=== PATIENT | female | born 1940 | race Caucasian/White ===

== ENCOUNTER 2017-11-11 14:34 | Emergency (ER) | payer OTHER, MEDICARE ==
[2017-11-11 14:40] VITALS: BMI 22.8
[2017-11-11] MEDS ORDERED: NIFEDIPINE CAP 10 MG ONE (15:23)
--- NOTE | 2017-11-11 15:23 | DR.GENAD ---
HPI - PCP Primary Care Physician: EVAN VALENCIA - Complaint/Symptoms Chief Complaint Doctors Comments: HISTORY BELOW. HAPPEN TODAY AN HOUR BEFORE COMING. AT THE [facility] DO[facility] WORK. NO PREVIOUS EPISODES REPORTED. Chief Complaint:: PT C/O THAT SHE WAS FEELING FINE UNTIL SHE ATE HER LUNCH AND WHEN SHE WENT TO STAND UP SHE FELT DIZZY AND SHE FELT ALOT OF PRESSURE TO HER HEAD AND HER BP WAS 159/170.. PT DENIES ANY CP , AND SHE C/O HER HEAD AND HER VISION FEELING SWIMMY,,, - Nurses notes reviewed Nurses Notes Review: Yes - Source History Provided: Patient - Mode of Arrival Mode of Arrival: Wheelchair - Timing Onset of Chief Complaint: 11/11/17 Came on: Suddenly - Duration Duration: Constant Duration: Hours - Severity Severity: Moderate PMH - PMH Past Medical History: Yes Past Medical History: Arthritis, Diabetes Past Surgical History: Yes Surgical History: Appendectomy, Hysterectomy Past Surgical History Comment: DOUBLE HIP REPLACEMENT, - Family History History of Family Medical Conditions: No - Social History Does patient currently use any type of tobacco product: No Have you used tobacco products in the last 12 months: No Type of Tobacco Use: None Does any household member use tobacco: No Alcohol Use: None Do you use any recreational Drugs:: No Lives With: Family Lives Where: Home - infectious screening In the last 2 months have you had wt loss of >10#?: NO Have you had fever, night sweats or hemotysis?: No Have you traveled outside the country in the last 6 months?: No Isolation: Standard ROS - Review of Systems Constitutional: No Symptoms Reported Eyes: Blurred Vision (TRANSIENT.) ENTM: Nose Congestion. negative: Ear Pain, Ear Discharge, Hearing Loss, Nose Discharge, Throat Pain Respiratoy: No Symptoms Reported Cardiovascular: No Symptoms Reported Gastrointestinal/Abdominal: No Symptoms Reported Genitourinary: No Symptoms Reported Neurological: Dizziness, Other (VERTIGO) Musculoskeletal: No Symptoms Reported Integumentary: No Symptoms Reported Hematologic/Lymphatic: No Symptoms Reported Endocrine: No Symptoms Reported All Other Systems: Reviewed and Negative PE - Vital Signs Vitals: Temperature 97.7 F Pulse Rate [Left Brachial] 71 Pulse Rate 76 Respiratory Rate 18 Blood Pressure [Left Arm] 129/58 Blood Pressure 201/91 O2 Sat by Pulse Oximetry 94 - General Limitations: No Limitations General Appearance: Alert - Head Head Exam: Normal Inspection - Eyes Eye exam: Normal Appearance - ENT ENT Exam: Normal External Ear Exam External Ear Exam: Normal External Inspection TM/Canal Exam: Bilateral Normal Nose Exam: Normal Nose Exam Mouth Exam: Normal Inspection Throat Exam: Normal Inspection - Neck Neck Exam: Trachea Midline - Chest Chest Inspection: Symmetric Chest Wall Rise, Other (BP ELEVATED.) - Respiratory Respiratory Exam: Normal Lung Sounds Bilat Respiratory Exam: Bilateral Clear to Auscultation - Cardiovascular Cardiovascular Exam: Regular Rate, Normal Rhythm, Normal Heart Sounds - Abdominal Exam Abdominal Exam: Normal Bowel Sounds, Soft. negative: Tenderness - Extremities Extremities Exam: Normal Inspection - Back Back Exam: Normal Inspection - Neurologic Neurological Exam: Alert, Oriented X3 - Psychiatric Psychiatric Exam: Normal Affect, Normal Mood - Skin Skin Exam: Normal Color MDM - Differential Diagnosis Differential Diagnosis: DIZZINESS, HYPERTENSIN, VERTIGO Course - Treatment Treatment: SEE ORDERS. - Consultation Consultation Comments: DISCUSS PATIENT WITH DR. GORDON. HE WILL FOLLOW HER UP IN THE OFFICE. - Education/Counseling Education/Counseling: Patient, Education Educated On: Treatment, Diagnosis, Needs for Follow Up ROR - Labs Reviewed Laboratory Results Reviewed?: Yes Result Diagrams: 11/11/17 15:23 11/11/17 15:23 Laboratory: WBC 8.2 X10^3/uL (3.6-10.0) 11/11/17 15: RBC 4.73 X10^6/uL (3.5-5.4) 11/11/17 15:23 Hgb 14.3 g/dL (12.0-16.0) 11/11/17 15: Hct 41.0 % (36.0-47.0) 11/11/17 15: MCV 86.6 fL (80.0-100.0) 11/11/17 15:23 MCH 30.2 pg (27.0-34.0) 11/11/17 15: MCHC 34.9 g/dL (33.0-35.0) 11/11/17 15: RDW 12.1 % (11.6-16.5) 11/11/17 15: Plt Count 301 X10^3/uL (150.0-450.0) 11/11/17 15: MPV 8.4 fL (7.4-11.0) 11/11/17 15: Neut % 65.3 % (42.0-75.0) 11/11/17 15: Lymph % 20.2 % (21.0-51.0) L 11/11/17 15: Dillon % 11.1 % (0.0-13.0) 11/11/17 15: Eos % 2.2 % (0.9-2.9) 11/11/17 15: Baso % 1.2 % (0.2-1.0) H 11/11/17 15: Neut # 5.3 x10^3/uL (2.2-4.8) H 11/11/17 15: Lymph # 1.6 X10^3/uL (1.3-2.9) 11/11/17 15: Dillon # 0.9 x10^3/uL (0.3-0.8) H 11/11/17 15: Eos # 0.2 x10^3/uL (0.0-0.2) 11/11/17 15: Baso # 0.1 X10^3/uL (0.0-0.1) 11/11/17 15: Absolute Nucleated RBC 0.1 /100WBC 11/11/17 15:23 Sodium 141 mmol/L (136-145) 11/11/17 15:23 Corrected Sodium TNP 11/11/17 15: Potassium 4.0 mmol/L (3.5-5.1) 11/11/17 15: Chloride 104 mmol/L (98-107) 11/11/17 15: Carbon Dioxide 29.4 mmol/L (21-32) 11/11/17 15:23 BUN 23 mg/dL (7-18) H 11/11/17 15:23 Creatinine 0.94 mg/dL (0.55-1.02) 11/11/17 15:23 Est GFR (MDRD) Af Amer > 60 (>60) 11/11/17 15:23 Est GFR (MDRD) Non-Af > 60 (>60) 11/11/17 15:23 Glucose 99 mg/dL (65-99) 11/11/17 15: Calcium 9.1 mg/dL (8.5-10.1) 11/11/17 15:23 Corrected Calcium TNP 11/11/17 15:23 Total Bilirubin 0.30 mg/dL (0.2-1.0) 11/11/17 15:23 AST 16 Units/L (15-37) 11/11/17 15:23 ALT 19 Units/L (12-78) 11/11/17 15:23 Alkaline Phosphatase 67 Units/L (46-116) 11/11/17 15:23 Creatine Kinase 88 Units/L (26-192) 11/11/17 15:23 CK-MB (CK-2) 1.6 ng/mL (0-4.0) 11/11/17 15:23 CK/CKMB % Calc 1.8 % (<4) 11/11/17 15:23 Troponin I < 0.02 ng/mL (0-1.5) 11/11/17 15:23 Total Protein 7.6 g/dL (6.4-8.2) 11/11/17 15:23 Albumin 3.7 g/dL (3.4-5.0) 11/11/17 15:23 Globulin 3.9 g/dL (2.5-4.5) 11/11/17 15:23 Albumin/Globulin Ratio 0.9 Ratio (1.1-2.1) L 11/11/17 15:23 - XRAY XRAY Interpreted by: Radiologist XRAY Findings: REPOT DISCUSS WITH PATIENT. - EKG Rhythm: NSR (EKG NOTED.) - Diagnosis Discharge Problem: Dizziness Hypertension Qualifiers: Hypertension type: essential hypertension Qualified Code(s): I10 - Essential ( primary) hypertension - Discharge Plan Disposition: 01 HOME, SELF-CARE Condition: Stable - Follow ups/Referrals Follow ups/Referrals: TAMARA GORDON [Primary Care Provider] - 2 days - Instructions Instructions: Hypertension, [id number], Dizziness, [id number] Additional Instructions: RETURN TO ED IF WORSE.
[2017-11-11 15:32] LABS: BASOPHILS # (AUTO) 0.1 X10^3/uL (0.0-0.1); BASOPHILS % (AUTO) 1.2 % (0.2-1.0); EOSINOPHILS # (AUTO) 0.2 x10^3/uL (0.0-0.2); EOSINOPHILS % (AUTO) 2.2 % (0.9-2.9); HEMOGLOBIN 14.3 g/dL (12.0-16.0); LYMPHOCYTES # (AUTO) 1.6 X10^3/uL (1.3-2.9); LYMPHOCYTES % (AUTO) 20.2 % (21.0-51.0); MEAN CORPUSCULAR HEMOGLOBIN 30.2 pg (27.0-34.0); MEAN CORPUSCULAR HGB CONC 34.9 g/dL (33.0-35.0); MEAN CORPUSCULAR VOLUME 86.6 fL (80.0-100.0); MEAN PLATELET VOLUME 8.4 fL (7.4-11.0); MONOCYTES # (AUTO) 0.9 x10^3/uL (0.3-0.8); MONOCYTES % (AUTO) 11.1 % (0.0-13.0); NEUTROPHILS # (AUTO) 5.3 x10^3/uL (2.2-4.8); NEUTROPHILS % (AUTO) 65.3 % (42.0-75.0); PLATELET COUNT 301 X10^3/uL (150.0-450.0); RED BLOOD COUNT 4.73 X10^6/uL (3.5-5.4); RED CELL DISTRIBUTION WIDTH 12.1 % (11.6-16.5); WHITE BLOOD COUNT 8.2 X10^3/uL (3.6-10.0)
[2017-11-11 15:46] LABS: BLOOD UREA NITROGEN 23 mg/dL (7-18); CALCIUM 9.1 mg/dL (8.5-10.1); CARBON DIOXIDE 29.4 mmol/L (21-32); CHLORIDE 104 mmol/L (98-107); CREATININE 0.94 mg/dL (0.55-1.02); SODIUM 141 mmol/L (136-145); TROPONIN I < 0.02 ng/mL (0-1.5); eGFR BLACK RACES > 60 (>60); eGFR NON BLACK RACES > 60 (>60)
[2017-11-11 15:51] LABS: ALANINE AMINOTRANSFERASE 19 Units/L (12-78); ALBUMIN 3.7 g/dL (3.4-5.0); ALKALINE PHOSPHATASE 67 Units/L (46-116); ASPARTATE AMINO TRANSFERASE 16 Units/L (15-37); CKMB % 1.8 % (<4); CREATINE KINASE 88 Units/L (26-192); CREATINE KINASE MB 1.6 ng/mL (0-4.0); TOTAL PROTEIN 7.6 g/dL (6.4-8.2)
[2017-11-11] MEDS: NIFEDIPINE CAP 10 MG PO ONE ×2 (15:56→16:50)
--- NOTE | 2017-11-11 16:00 | CT ---
HISTORY: Dizziness. Study: CT brain without contrast Comparison: CT head dated November 06, 2014. Technique: Multiple axial images of the brain were obtained from the skull base to the vertex without administra tion of IV contrast. Dose reduction techniques including Automated Exposure Control (AEC) and adjust ment of mA and kV were utilized. Findings: Age-related cortical atrophy and chronic small vessel ischemic changes. No acute intraparenchymal hem orrhage or mass can be identified. No extra-axial fluid collections are seen. No alteration in the attenuation of the brain parenchyma can be identified to suggest acute or subacute ischemic change. The ventricular system is symmetric and nondilated. The extracranial structures are grossly unremark able. IMPRESSION: No acute intracranial pathology. Reported By:
--- NOTE | 2017-11-11 16:05 | CT ---
HISTORY: Shortness of breath and dizziness. Study: CT chest without contrast Comparison: None. Technique: Multiple axial images of the chest were obtained from the thoracic inlet to the upper abdo men without the administration of IV contrast. MIP images were obtained. Dose reduction techniques in cluding Automated Exposure Control (AEC) and adjustment of mA and kV were utilized. Findings: Limited study secondary to lack of IV contrast. The mediastinum does not demonstrate significant pathological lymphadenopathy. There is no paracardi al effusion observed. The thoracic aorta is normal in its contour without evidence for aneurysmal di latation. Coronary artery and thoracic aortic calcifications. Mild centrilobular and paraseptal emphysematous changes. No suspicious pulmonary nodules, mass, focal consolidation, pleural effusion, or pneumothorax. Bibasilar scarring versus atelectasis. Nonspecific punctate calcifications are seen within the pancreatic head. This may represent sequela of remote pa ncreatitis. No obvious mass. Remaining upper abdominal structures are unremarkable. Degenerative baumann ges of the spine. No aggressive osseous lesions. IMPRESSION: No CT evidence of acute thoracic pathology. Reported By:
[2017-11-11] MEDS ORDERED: XANAX PO ONE (16:08)
[2017-11-11] MEDS ORDERED: XANAX ONE (16:09)
[2017-11-11 17:28] VITALS: BP 129/58
== END 2017-11-11 17:31 | disposition home or self-care (01) ==
LOC: ER 14:47
DX: R42 Dizziness and giddiness (principal); I10 Essential (primary) hypertension
CPT/HCPCS: 36415; 70450; 71250; 80053; 82550; 82553; 84484; 85025; 93005; 93010; 99283; 99284